=== PATIENT | male | born 1965 | race Caucasian/White ===

== ENCOUNTER → 2017-04-13 | Day surgery (SDC) | payer OTHER, MEDICARE ==
--- NOTE | 2017-04-13 11:53 | Operative Report ---
Operative/Inv Procedure Report Surgery Date: 04/13/17 Name of Procedure: Myringotomy with PE tube insertion, both ears Pre-Operative Diagnosis: chronic otitis media, bilateral Post-Operative Diagnosis: cerumen impaction CRISTIANO, BRANDY COM, [place] Estimated Blood Loss: scant Surgeon/Managed Care Director: Zahida COCHRAN,Yaakov Nguyen Anesthesia: laryngeal mask airway Drains: stainless steel toña bobbin PE tubes Specimens: none Complications: none Condition: good Operative Indication: chronic ear infections with hearing loss, bilateral Operative/Procedure Note Note: With the patient in supine position and anesthesia was administered by LMA. A timeout was then performed to confirm the correct patient and procedure. With use of the operating microscope and an ear speculum ears were examined. Significantly noted were bilateral cerumen impactions which required ear drops to soften and suction and forceps to remove. Findings in the right ear revealed a very thickened tympanic membrane with granulation tissue on the surface. A myringotomy was then performed and a PE tube placed into the myringotomy site. The middle ear space appeared clear. Due to the granulation tissue several drops of antibiotic solution were placed as well as a cotton-soaked pledgets of Afrin to control superficial bleeding. The left ear again revealed significant cerumen impaction. The tympanic membrane was then but scar the middle ear space was clear. Following a myringotomy PE tube was placed and this was followed by several drops of ofloxacin ophthalmic solution and a cotton pledget He tolerated procedure well and following the procedure was awakened and extubated transferred to recovery in satisfactory condition. Findings: Bilateral cerumen impaction Chronic otitis media bilateral with active otitis externa of the right eardrum Discharge Disposition: PACU CC: Fernando COCHRAN,Faizan Monique
== END ==
LOC: STS 01:18
DX: H66.93 Otitis media, unspecified, bilateral (principal); H60.8X1 Other otitis externa, right ear; H61.23 Impacted cerumen, bilateral; I10 Essential (primary) hypertension; Q90.9 Down syndrome, unspecified
CPT/HCPCS: C9399; J0131; J2250